=== PATIENT | male | born 1995 ===

== ENCOUNTER → 2024-01-04 06:32 | Outpatient (REF) | payer BC, SELFPAY ==
[2024-01-04 07:36] LABS: % Basophils 0.6 % (0-2); % Eosinophils 4.5 % (0-6); % Immature Granulocytes 0.3 % (0-0.5); % Lymphocytes 32.6 % (20.5-51.1); % Monocytes 9.1 % (1.7-9.3); % Neutrophils 52.9 % (42.2-75.2); Absolute Basophils 0.1 10^3/uL (0-0.2); Absolute Eosinophils 0.4 10^3/uL (0-0.7); Absolute Lymphocytes 2.5 10^3/uL (1.2-3.4); Absolute Monocytes 0.7 10^3/uL (0.1-0.6); Absolute Neutrophils 4.1 10^3/uL (1.4-6.5); Hematocrit 43.5 % (39.0-52.0); Hemoglobin 14.6 g/dL (13.0-18.0); Mean Corp Hgb Conc. 33.6 g/dL (33.0-37.0); Mean Corpuscular Hgb 28.1 pg (27.0-31.0); Mean Corpuscular Volume 83.8 fL (80.0-94.0); Nucleated Red Blood Cells % 0 % (-); Platelet Count 236 10^3/uL (130-400); Red Blood Cell Count 5.19 10^6/uL (4.70-6.10); Red Cell Dist. Width 11.9 % (11.5-14.5); White Blood Cell Count 7.7 10^3/uL (4.8-10.8)
[2024-01-04 08:09] LABS: ALT (SGPT) 61 U/L (0-50); AST (SGOT) 28 U/L (17-59); Albumin 4.4 g/dl (3.5-5.0); Alkaline Phosphatase 57 U/L (38-126); Blood Urea Nitrogen 18 mg/dl (9-20); Calcium 9.8 mg/dl (8.4-10.2); Carbon Dioxide 30 mmol/L (22-30); Chloride 100 mmol/L (98-107); Glucose 107 mg/dl (70-99); HDL Cholesterol 46 mg/dl; LDL Cholesterol, Calculated 84 mg/dl; Potassium 4.4 mmol/L (3.5-5.1); Sodium 141 mmol/L (135-145); Total Bilirubin 1.8 mg/dl (0.2-1.3); Total Cholesterol 144 mg/dl (50-199); Total Protein 7.4 g/dl (6.3-8.2); Triglyceride 71 mg/dl (10-149); Very Low Density Lipoprotein 14 mg/dl (0-30); eGFR > 60.00
[2024-01-04 08:34] LABS: TSH 1.79 uIU/ml (0.47-4.68)
== END ==
LOC: REG 06:32
PROVIDERS: ATTENDING PHYSICIAN Family Medicine
DX: Z00.00 Encounter for general adult medical examination without abnormal findings (principal); E78.5 Hyperlipidemia, unspecified; D68.59 Other primary thrombophilia
CPT/HCPCS: 36415; 80053; 80061; 84443; 85025

== ENCOUNTER → 2024-01-31 06:24 | Outpatient (REF) | payer SELFPAY ==
[2024-01-31 07:42] LABS: ALT (SGPT) 45 U/L (0-50); AST (SGOT) 25 U/L (17-59); Albumin 4.7 g/dl (3.5-5.0); Alkaline Phosphatase 58 U/L (38-126); Direct Bilirubin 0.1 mg/dl (0.0-0.4); GGTP 24 U/L (15-73); Glucose 106 mg/dl (70-99); Total Bilirubin 1.6 mg/dl (0.2-1.3); Total Protein 7.3 g/dl (6.3-8.2)
[2024-01-31 10:10] LABS: Glycohemoglobin (HgbA1c) 5.8 % (4.0-5.6)
== END ==
LOC: REG 06:24
PROVIDERS: ATTENDING PHYSICIAN Family Medicine
DX: R73.01 Impaired fasting glucose (principal); R79.89 Other specified abnormal findings of blood chemistry; R17 Unspecified jaundice
CPT/HCPCS: 36415; 80076; 82947; 82977; 83036

== ENCOUNTER 2024-05-22 19:07 | Emergency (ER) | payer BC, SELFPAY ==
[2024-05-22 19:10] VITALS: BP 142/84
[2024-05-22 19:51] LABS: % Basophils 0.4 % (0-2); % Eosinophils 1.9 % (0-6); % Immature Granulocytes 0.3 % (0-0.5); % Lymphocytes 26.2 % (20.5-51.1); % Monocytes 7.7 % (1.7-9.3); % Neutrophils 63.5 % (42.2-75.2); Absolute Basophils 0.1 10^3/uL (0-0.2); Absolute Eosinophils 0.2 10^3/uL (0-0.7); Absolute Monocytes 0.9 10^3/uL (0.1-0.6); Absolute Neutrophils 7.2 10^3/uL (1.4-6.5); Hematocrit 41.4 % (39.0-52.0); Hemoglobin 14.2 g/dL (13.0-18.0); Mean Corp Hgb Conc. 34.3 g/dL (33.0-37.0); Mean Corpuscular Hgb 28.7 pg (27.0-31.0); Mean Corpuscular Volume 83.6 fL (80.0-94.0); Mean Platelet Volume 10.7 fL (7.4-10.4); Nucleated Red Blood Cells % 0 % (-); Platelet Count 217 10^3/uL (130-400); Red Blood Cell Count 4.95 10^6/uL (4.70-6.10); Red Cell Dist. Width 12.2 % (11.5-14.5); White Blood Cell Count 11.3 10^3/uL (4.8-10.8)
[2024-05-22 20:08] LABS: ALT (SGPT) 48 U/L (0-50); AST (SGOT) 29 U/L (17-59); Albumin 4.9 g/dl (3.5-5.0); Alkaline Phosphatase 64 U/L (38-126); Blood Urea Nitrogen 17 mg/dl (9-20); Calcium 9.9 mg/dl (8.4-10.2); Carbon Dioxide 28 mmol/L (22-30); Chloride 101 mmol/L (98-107); Glucose 96 mg/dl (70-99); Lipase 48 U/L (23-300); Sodium 136 mmol/L (135-145); Total Bilirubin 1.6 mg/dl (0.2-1.3); Total Protein 7.2 g/dl (6.3-8.2); eGFR > 60.00
[2024-05-22 20:17] LABS: Troponin I < 0.012 ng/ml
[2024-05-22 20:30] VITALS: BP 129/80
[2024-05-22 20:44] VITALS: BMI 27.4
[2024-05-22 21:00] VITALS: BP 123/77
[2024-05-22 22:00] VITALS: BP 115/56
[2024-05-22 22:09] LABS: D-Dimer < 0.27 ug/mlFEU (0.00-0.50)
--- NOTE | 2024-05-22 22:15 | EDRN ---
Updated patient and his fiance on labs aware waiting for provider to review and have plan
--- NOTE | 2024-05-22 22:42 | ED.GENMED ---
History of Present Illness
General
Chief Complaint: Chest Pain
Time Seen by Provider: 05/22/24 21:15
History of Present Illness
History of Present Illness:
29-year-old male presents the emergency department for evaluation of intermittent left-sided chest pain has been ongoing for the past 3 days. Occurred after working out at the gym today. Denies any traumatic injuries. No recent fever, chills,
sweats. Denies any recent cold or flu type illness in the past 6 to 8 weeks. No recent vaccinations. Pain is not currently present. He is primarily concerned due to history of protein C deficiency, has never had a blood clot
Review of Systems
Review of Systems
Allergies reviewed?: Yes
All Other Systems: ROS reviewed and negative except as documented in HPI and ROS
Phy Exam
Physical Exam
Physical Exam:
GEN: Well appearing, NAD, WDWN
HEENT: Oral mucosa moist, no scleral icterus
Cardiac: Regular rate and rhythm, no murmur
Lung: No respiratory distress, no tachypnea, lungs clear to auscultation bilaterally
MSK: No gross deformity or injuries
Skin: Good color, no pallor or jaundice, no rashes
Neuro: AO x3, moves all extremities freely
Psych: Calm, cooperative
Scores
Heart Score for Chest Pain Patients
STEMI patient?: No
History: Slightly or Non-Suspicious
ECG: Normal
Age: </= 45 years
Risk Factors: No Risk Factors
Troponin: </= Normal Limit
Heart Score for Chest Pain Patients: 0
Heart Score Risk: 2.5% MACE over next 6 weeks
Course
Orders/Labs/Results
Orders:
Orders
05/22/24 19:14
Electrocardiogram (*1) Urgent
Reason for Study: Chest Pain
EKG- Treatment ONCE
05/22/24 19:34
CMP [Comprehensive Metabolic Panel] Urgent
Complete Blood Count/With Diff Urgent
Lipase Urgent
Troponin I Urgent
05/22/24 21:40
D-Dimer Urgent
05/22/24 22:14
CR Chest - 2 Views Urgent
Comment:
Reason For Exam: chest pain
Abnormal Lab Results
05/22/24
19:34
WBC 11.3 H 10^3/uL
(4.8-10.8)
MPV 10.7 H fL
(7.4-10.4)
Absolute Neuts (auto) 7.2 H 10^3/uL
(1.4-6.5)
Absolute Monos (auto) 0.9 H 10^3/uL
(0.1-0.6)
Total Bilirubin 1.6 H mg/dl
(0.2-1.3)
05/22/24 19:34
05/22/24 19:34
Vital Signs
Initial and Last Documented VS:
Initial Vital Signs
Temp Pulse Resp BP Pulse Ox
98.1 F 56 18 142/84 98
05/22/24 19:10 05/22/24 19:10 05/22/24 19:10 05/22/24 19:10 05/22/24 19:10
Last Documented Vital Signs
Temp Pulse Resp BP Pulse Ox
98.1 F 59 27 115/56 98
05/22/24 19:10 05/22/24 22:15 05/22/24 22:15 05/22/24 22:00 05/22/24 22:15
MDM/Problems Addressed
MDM/Problems Addressed:
Patient's workup unremarkable, D-dimer negative is reassuring and a low risk setting. Chest x-ray shows no evidence for acute disease. Discussed supportive care and return parameters
Comment
Comment:
EKG independently interpreted by me shows a sinus bradycardia at a rate of [address] changes concerning for ischemia
*Critical Care Note
Total Time (30-74mins, 75-104mins- exclusive of procedures): Not Applicable
ED Attending Note
-
Portions of this chart may have been created with voice recognition software.� Occasional wrong word or��sound alike� substitutions may have occurred due to the inherent limitations of voice recognition software.
Discharge Plan
Departure
Patient Disposition: Home (Routine Discharge)
Date of Disposition: 05/22/24
Time of Disposition: 22:42
Patient with high blood pressure during this ER visit?: No
Discharge Problem:
Chest pain
Instructions: Chest Pain That Is Not Caused by the Heart (DC)
Referrals:
Vikram Larson DO [Family Provider] -
Interventions
Interventions:
*Risk Screen - Suicide Last Done: 05/22/24 19:10
*General Assessment Last Done: 05/22/24 20:44
*Neglect/Abuse Screening Last Done: 05/22/24 19:10
ED- Fall Risk Assessment Last Done: 05/22/24 20:44
*ED COVID-19 Vaccine History Last Done: 05/22/24 22:49
*Nursing Disposition Last Done: 05/22/24 22:49
ED- Cardiac Assessment Last Done: 05/22/24 20:44
Discharge Date and Time
Discharge Date/Time: 05/22/24 22:49
Print Language: [place]
== END 2024-05-22 22:49 | disposition home or self-care (01) ==
LOC: EMR 19:07
PROVIDERS: Physician Assistant; Student in an Organized Health Care Education/Training Program; EMERGENCY PHYSICIAN Emergency Medicine; FAMILY PHYSICIAN Family Medicine
DX: R07.89 Other chest pain (principal)
CPT/HCPCS: 99284; 71046; 80053; 83690; 84484; 85025; 85379; 93005

== ENCOUNTER → 2025-01-08 15:44 | Outpatient (REF) | payer BC, SELFPAY ==
[2025-01-08 16:45] LABS: Direct Bilirubin 0.2 mg/dl (0.0-0.4); Total Bilirubin 1.2 mg/dl (0.2-1.3)
[2025-01-09 09:17] LABS: Glycohemoglobin (HgbA1c) 5.4 % (4.0-5.6)
== END ==
LOC: REG 15:44
PROVIDERS: ATTENDING PHYSICIAN Family Medicine
DX: R73.03 Prediabetes (principal); R17 Unspecified jaundice
CPT/HCPCS: 36415; 82247; 82248; 83036

== ENCOUNTER → 2025-07-11 06:21 | Outpatient (REF) | payer BC, SELFPAY ==
[2025-07-11 07:03] LABS: Hematocrit 45.6 % (39.0-52.0); Hemoglobin 15.3 g/dL (13.0-18.0); Mean Corp Hgb Conc. 33.6 g/dL (33.0-37.0); Mean Corpuscular Volume 84.0 fL (80.0-94.0); Nucleated Red Blood Cells % 0 % (-); Platelet Count 236 10^3/uL (130-400); Red Cell Dist. Width 12.3 % (11.5-14.5)
[2025-07-11 08:07] LABS: ALT (SGPT) 80 U/L (0-50); AST (SGOT) 32 U/L (17-59); Albumin 5.1 g/dl (3.5-5.0); Alkaline Phosphatase 67 U/L (38-126); Blood Urea Nitrogen 14 mg/dl (9-20); Calcium 9.9 mg/dl (8.4-10.2); Carbon Dioxide 31 mmol/L (22-30); Chloride 103 mmol/L (98-107); Glucose 104 mg/dl (70-99); HDL Cholesterol 47 mg/dl; LDL Cholesterol, Calculated 91 mg/dl; Potassium 4.4 mmol/L (3.5-5.1); Sodium 140 mmol/L (135-145); Total Protein 7.8 g/dl (6.3-8.2); Very Low Density Lipoprotein 31 mg/dl (0-30); eGFR > 60.00
[2025-07-11 09:25] LABS: Glycohemoglobin (HgbA1c) 5.4 % (4.0-5.6)
== END ==
LOC: REG 06:21
PROVIDERS: ATTENDING PHYSICIAN Family Medicine
DX: E78.5 Hyperlipidemia, unspecified (principal); Z00.00 Encounter for general adult medical examination without abnormal findings; E80.6 Other disorders of bilirubin metabolism; R73.03 Prediabetes
CPT/HCPCS: 36415; 80053; 80061; 82248; 83036; 85025

== ENCOUNTER → 2025-10-12 06:22 | Outpatient (REF) | payer BC, SELFPAY ==
[2025-10-12 08:15] LABS: ALT (SGPT) 68 U/L (0-50); Albumin 5.0 g/dl (3.5-5.0); Alkaline Phosphatase 77 U/L (38-126); Total Protein 7.8 g/dl (6.3-8.2)
[2025-10-12 08:25] LABS: AST (SGOT) 33 U/L (17-59)
== END ==
LOC: REG 06:22
PROVIDERS: ATTENDING PHYSICIAN Family Medicine
DX: R74.01 Elevation of levels of liver transaminase levels (principal)
CPT/HCPCS: 36415; 80076